=== PATIENT | female | born 1950 | race Caucasian/White ===

== ENCOUNTER 2020-07-26 09:02 | Day surgery (SDC) | payer MEDICARE, BC ==
[~2020-07-26 09:02] MED LIST: Sodium Chloride 0.9% 10 ML Syringe FLUSH PRN
[2020-07-26] MEDS: Lactated Ringers 1,000 ML IV SCH (09:25)
[2020-07-26] MEDS ORDERED: Propofol 200 MG/20 ML SDV ONE ×2 (10:01)
[2020-07-26] MEDS ORDERED: Midazolam 1 MG/ML 2 ML SDV ONE (10:01)
[2020-07-26] MEDS ORDERED: Lactated Ringers 1,000 ML ONE (11:26)
--- NOTE | 2020-07-26 12:09 | PCM.PRNOTE ---
- Free Text/Narrative Note: PROCEDURE PERFORMED: Colonoscopy with polypectomy/biopsy PRE-PROCEDURE DIAGNOSIS/INDICATION FOR PROCEDURE: Rectal bleeding, 07/07/20 CT abdomen/pelvis with concern for developing rectal mass, last colonoscopy 12/24/12 with no polyps CONSENT: Informed consent was obtained prior to the procedure after discussion of the r isks (including pain, bleeding, infection, perforation, missed polyps, inability to completely remove polyps or complete procedure necessitating repeat colonoscopy, adverse reaction to anesthesia, cardiovascular event), benefits and alternatives and expected outcomes. The patient expressed understanding and wished to proceed. Verbal consent given and consent form signed. PROCEDURAL PAUSE: Completed SEDATION: Per anesthesia DESCRIPTION OF PROCEDURE: Patient was placed in the left lateral decubitus position. After adequate sedation and anesthetic was administered, a rectal exam was performed revealing no abnormalities. A lubricated Olympus Video Colonoscope was inserted into the rectum and air insufflation was performed. The colonoscope was advanced to just beyond 10cm noting a rectal mass. Upon further evaluation, it was obviously nonobstructing with easy passage past noting the mass to be involving no more than 5cm of the length of the colon. With [id number] difficulty, the colonoscope was able to pass through the remainder of the rectum, sigmoid, descending, transverse, and ascending colon without difficulties. The cecum was reached and the ileocecal valve as well as the appendiceal orifice were identified and pictorially documented in the distance along with a pedunculated polyp at 110cm, which was removed with hot snare and polyp retriever. Visualized the hepatic flexure, transverse colon, splenic flexure, descending colon, and sigmoid colon while en route out of colon noting no obvious large polyps or abnormalities of the mucosa able to be visualized, though noting moderate amount of retained liquid throughout. Reinserted the colonoscope and took multiple biopsies of the rectal mass with cold forceps. Due to clinical situation involving repeat colonoscopies in the future, did not re-insert colonoscope past the rectal mass to obtain a better visualization of the rest of the colon. Preparation adequacy Nemo Bowel Score 6/9. The patient overall tolerated well without complications. IMPRESSION: Colonoscopy performed revealing: - Large rectal mass at 10-15cm, pathology now pending - 1.2cm ascending colon polyp, pathology now pending PLAN: Extensively discussed findings, precautions (specifically discussed symptoms concerning for postprocedure bleeding and perforation, including profuse rectal bleeding, severe abdominal pain, and fever), and further plan of care with the patient and her . Will await biopsy results and place referral for colorectal surgery and GI cancer nurse navigator at [facility]. Will contact the patient when pathology results received. Ensure adequate bowel regimen to avoid constipation.
[2020-07-26] MEDS: Ondansetron 4 MG/2 ML SDV IVPUSH ONE (12:45)
[2020-07-26] MEDS: Morphine 2 MG/ML SYRINGE IVPUSH ONE (12:46)
== END 2020-07-26 14:45 | disposition home or self-care (01) ==
LOC: KA.SDS 09:02
PROVIDERS: ATTEND Family Medicine
DX: D12.6 Benign neoplasm of colon, unspecified (principal); K62.89 Other specified diseases of anus and rectum; K57.10 Diverticulosis of small intestine without perforation or abscess without bleeding; R01.1 Cardiac murmur, unspecified; E66.9 Obesity, unspecified; Z68.30 Body mass index [BMI] 30.0-30.9, adult; Z88.1 Allergy status to other antibiotic agents; Z88.8 Allergy status to other drugs, medicaments and biological substances
CPT/HCPCS: 00811; 45380; 45385; J2250; J2270; J2405; J2704; J7120

== ENCOUNTER 2021-10-10 09:19 | Day surgery (SDC) | payer MEDICARE ==
[2021-10-10] MEDS ORDERED: Sodium Chloride 0.9% 10 ML Syringe FLUSH PRN (09:30)
[2021-10-10] MEDS ORDERED: Midazolam 1 MG/ML 2 ML SDV ONE (09:39)
[2021-10-10] MEDS ORDERED: Propofol 200 MG/20 ML SDV ONE (09:40)
[2021-10-10] MEDS: Lactated Ringers 1,000 ML IV SCH (09:41)
== END 2021-10-10 12:15 | disposition home or self-care (01) ==
LOC: KA.SDS 09:19
PROVIDERS: ATTEND Family Medicine
DX: K57.30 Diverticulosis of large intestine without perforation or abscess without bleeding (principal); C19 Malignant neoplasm of rectosigmoid junction; I35.0 Nonrheumatic aortic (valve) stenosis; R92.1 Mammographic calcification found on diagnostic imaging of breast; N95.2 Postmenopausal atrophic vaginitis; E04.2 Nontoxic multinodular goiter; M85.852 Other specified disorders of bone density and structure, left thigh; G62.0 Drug-induced polyneuropathy; E66.9 Obesity, unspecified; Z68.30 Body mass index [BMI] 30.0-30.9, adult; L90.0 Lichen sclerosus et atrophicus; E78.00 Pure hypercholesterolemia, unspecified; Z79.899 Other long term (current) drug therapy
CPT/HCPCS: 00812; J2250; J2704; J7120